=== PATIENT | male | born 1985 | race African-American/Black ===

== ENCOUNTER 2019-10-15 17:16 | Inpatient (IN) ==
[2019-10-15 17:53] LABS: Basophils % 0.1 % (0.0-0.8); Hematocrit 45.1 VOL% (42.0-52.0); Immature Granulocytes % 0.4 %; Immature Granulocytes Absolute 0.03 #; Lymphocytes # 0.6 10*3/uL (1.4-4.0); Lymphocytes % 7.9 % (21.2-54.2); Mean Corpuscular Volume 80.5 FL (87-102); Mean Platelet Volume 11.7 FL (9.6-12.0); Monocytes % 2.3 % (1.7-12.7); Neutrophils % 89.3 % (38.7-73.9); Platelet Count 178 T/CUMM (130-400); Red Cell Distribution Width 14.9 % (9.3-17.3); White Blood Count 7.3 T/CUMM (4-12)
[2019-10-15] MEDS ORDERED: SODIUM CHLORIDE 0.9% 2,000 ML IV STA (17:56)
[2019-10-15] MEDS ORDERED: methylPREDNISolone SOD SUC 125 MG/2 ML VIAL IV STA (17:56)
[2019-10-15] MEDS ORDERED: ALBUTEROL/IPRATROPIUM 3 ML NEB RESP TX STA (17:56)
[2019-10-15] MEDS ORDERED: cefTRIAXone 1,000 MG in SODIUM CHLORIDE 0.9% 100 ML IV STA (18:04)
[2019-10-15] MEDS ORDERED: LEVOFLOXACIN INJ 500 MG in PREMIX 1 EACH IV STA (18:05)
[2019-10-15 18:10] LABS: INR 1.1; PT Patient Result 11.4 SECS (9.8-11.9)
[2019-10-15 18:23] LABS: Ferritin 762.5 ng/ml (26-388)
[2019-10-15 18:36] LABS: ABG HCO3 20.3 MMOL/L (20-26); ABG Oxygen Saturation 92.3 % (95-100); ABG PCO2 29.3 MM HG (35-48); ABG PH 7.407 (7.35-7.45); ABG PO2 67.8 MM HG (80-95); ABG TCO2 16.1 MMOL/L (23-27)
[2019-10-15 18:40] LABS: Alanine Aminotransferase 74 U/L (16-61); Albumin 1.8 G/DL (3.4-5.0); Alkaline Phosphatase 32 U/L (45-117); Aspartate Amino Transferase 142 U/L (0-37); Bilirubin,Total < 0.39 MG/DL (0.2-1.0); Blood Urea Nitrogen 75 MG/DL (7-18); CKMB % 0.1 %; Calcium 7.5 MG/DL (8.5-10.1); Estimated Glom Filtration Rate 11 ML/MIN; Glucose 140 MG/DL (74-106); Osmolality,Calculated 285.7 MOS/KG (273-304)
[2019-10-15 18:42] LABS: Troponin I 0.124 NG/ML (0.00-0.045)
[2019-10-15] MEDS: ALBUTEROL INHALER 18 GM INH SCH (19:00)
[2019-10-15] MEDS ORDERED: ONDANSETRON 4 MG/2 ML VIAL IV PRN (19:20)
[2019-10-15] MEDS ORDERED: NON-FORMULARY MEDICATION (Albuterol Sulfate 2 PUFF) INH PRN (19:34)
[2019-10-15 20:51] LABS: Calcium 7.1 MG/DL (8.5-10.1); Osmolality,Calculated 293.2 MOS/KG (273-304)
[2019-10-15] MEDS ORDERED: CEFEPIME 1,000 MG VIAL ONE (23:15)
[2019-10-15] MEDS ORDERED: SODIUM CHLORIDE 0.9% 250 ML IV ONE (23:15)
[2019-10-16] MEDS ORDERED: AZITHROMYCIN INJ 250 MG in SODIUM CHLORIDE 0.9% 250 ML IV SCH (00:30)
[2019-10-16] MEDS: CEFEPIME 1,000 MG in SODIUM CHLORIDE 0.9% 100 ML IV SCH (00:50)
[2019-10-16] MEDS: ALBUTEROL INHALER 18 GM INH SCH ×6 (00:50→20:44)
[2019-10-16] MEDS: SODIUM BICARB INJ 50 MEQ in SODIUM CHLORIDE 0.45% 1,000 ML IV SCH ×6 (00:51→23:30)
[2019-10-16] MEDS: ENOXAPARIN 150 MG/ML SYRINGE SUBCUT SCH (00:52)
[2019-10-16] MEDS: ALBUTEROL 2 MG TABLET PO SCH ×4 (00:52→20:44)
[2019-10-16 02:08] LABS: Alanine Aminotransferase 75 U/L (16-61); Albumin 1.7 G/DL (3.4-5.0); Alkaline Phosphatase 22 U/L (45-117); Aspartate Amino Transferase 135 U/L (0-37); Bilirubin,Total < 0.39 MG/DL (0.2-1.0); Blood Urea Nitrogen 82 MG/DL (7-18); Calcium 7.1 MG/DL (8.5-10.1); Estimated Glom Filtration Rate 10 ML/MIN; Glucose 177 MG/DL (74-106); HDL Cholesterol 22 MG/DL (40-60); Osmolality,Calculated 296.2 MOS/KG (273-304); Risk Ratio 8.41; Total Protein 6.5 G/DL (6.4-8.3); Triglycerides 278 MG/DL (2-150); VLDL CHOLESTEROL 55.6 MG/DL
[2019-10-16 02:12] LABS: Hematocrit 40.8 VOL% (42.0-52.0); Hemoglobin 12.8 GM/DL (14.0-18.0); Immature Granulocytes % 0.4 %; Immature Granulocytes Absolute 0.03 #; Lymphocytes # 0.5 10*3/uL (1.4-4.0); Lymphocytes % 6.4 % (21.2-54.2); Mean Corpuscular HGB Conc 31.4 GM/DL (32-36); Mean Corpuscular Volume 80.6 FL (87-102); Mean Platelet Volume 12.2 FL (9.6-12.0); Monocytes % 1.4 % (1.7-12.7); Neutrophils % 91.8 % (38.7-73.9); Platelet Count 173 T/CUMM (130-400); Red Blood Count 5.06 MC/CUMM (3.8-5.5); White Blood Count 7.1 T/CUMM (4-12)
[2019-10-16 03:31] LABS: Lymphocytes 4 % (20-55); Segmented Neutrophils 94 % (50-85); Total Cells Counted 100
[2019-10-16 03:32] LABS: Anisocytosis 1+; Ovalocytes Few
[2019-10-16 03:33] LABS: Platelet Estimate Normal
[2019-10-16] MEDS: MONTELUKAST 10 MG TABLET PO SCH (08:56)
[2019-10-16] MEDS: DEXAMETHASONE 4 MG/1 ML VIAL IV SCH (08:56)
[2019-10-16] MEDS ORDERED: SODIUM CHLORIDE 0.9% 1,000 ML IV PRN (11:20)
[2019-10-16 17:14] LABS: Calcium 6.8 MG/DL (8.5-10.1); Osmolality,Calculated 296.5 MOS/KG (273-304)
[2019-10-16 19:00] LABS: Apearance,Urine CLOUDY (Clear); Bacteria,Urine Occasional /HPF (Few); Bilirubin,Urine Negative (Negative); Blood, Urine Large mg/dL (Negative); Glucose,Urine (UA) 50 mg/dL (Negative); Hyaline Casts,Urine 1 /LPF (0-3); Ketones,Urine Negative (Negative); Mucus,Urine Occasional /LPF (Occasional); Nitrite,Urine Negative (Negative); Protein,Urine >=500 MG/DL; RBC,Urine 64 /HPF (0-4); Urine Color Yellow (Yellow); Urine Specific Gravity 1.026 (1.001-1.035); Urine Urobilinogen < 2.0 EU/DL (0.2-1.0); WBC,Urine 6 /HPF (0-6)
[2019-10-17] MEDS: ALBUTEROL INHALER 18 GM INH SCH ×6 (00:07→21:59)
[2019-10-17] MEDS: ENOXAPARIN 150 MG/ML SYRINGE SUBCUT SCH (00:07)
[2019-10-17] MEDS: CEFEPIME 1,000 MG in SODIUM CHLORIDE 0.9% 100 ML IV SCH (00:13)
[2019-10-17] MEDS ORDERED: LORazepam 2 MG/1 ML VIAL IV PRN (00:34)
[2019-10-17] MEDS: ALBUTEROL 2 MG TABLET PO SCH ×4 (01:15→18:00)
[2019-10-17 04:16] LABS: Basophils % 0.1 % (0.0-0.8); Hematocrit 40.6 VOL% (42.0-52.0); Hemoglobin 12.6 GM/DL (14.0-18.0); Immature Granulocytes % 0.9 %; Lymphocytes # 0.4 10*3/uL (1.4-4.0); Lymphocytes % 3.4 % (21.2-54.2); Mean Corpuscular Volume 80.9 FL (87-102); Mean Platelet Volume 11.6 FL (9.6-12.0); Monocytes % 3.4 % (1.7-12.7); Neutrophils % 92.2 % (38.7-73.9); Platelet Count 178 T/CUMM (130-400); Red Blood Count 5.02 MC/CUMM (3.8-5.5); Red Cell Distribution Width 15.1 % (9.3-17.3); White Blood Count 10.9 T/CUMM (4-12)
[2019-10-17 04:18] LABS: ABG Base Excess -6.5 MMOL/L (-2.5-2.5); ABG Oxygen Saturation 90.5 % (95-100); ABG PCO2 35.2 MM HG (35-48); ABG PH 7.334 (7.35-7.45); ABG PO2 67.1 MM HG (80-95); ABG TCO2 16.6 MMOL/L (23-27); Allen Test Positive; Pt O2 Delivery Device Other
[2019-10-17 04:56] LABS: Band Neutrophils 1 % (0-10); Lymphocytes 1 % (20-55); Microcytosis Slight; Platelet Estimate Adequate; Segmented Neutrophils 95 % (50-85); Total Cells Counted 100
[2019-10-17 05:04] LABS: Osmolality,Calculated 299.5 MOS/KG (273-304)
[2019-10-17 05:05] LABS: Alanine Aminotransferase 94 U/L (16-61); Alkaline Phosphatase 31 U/L (45-117); Aspartate Amino Transferase 176 U/L (0-37); Bilirubin,Total < 0.39 MG/DL (0.2-1.0); Estimated Glom Filtration Rate 7 ML/MIN; Total Protein 6.6 G/DL (6.4-8.3)
[2019-10-17 05:07] LABS: Blood Urea Nitrogen 104 MG/DL (7-18); Glucose 151 MG/DL (74-106); Osmolality,Calculated 299.5 MOS/KG (273-304)
[2019-10-17] MEDS: LORazepam 2 MG/1 ML VIAL IV PRN (05:16)
[2019-10-17 05:18] LABS: Albumin 1.6 G/DL (3.4-5.0)
[2019-10-17] MEDS: DEXAMETHASONE 4 MG/1 ML VIAL IV SCH (08:00)
[2019-10-17] MEDS: MONTELUKAST 10 MG TABLET PO SCH (08:01)
[2019-10-17] MEDS: AZITHROMYCIN INJ 250 MG in SODIUM CHLORIDE 0.9% 250 ML IV SCH (09:37)
[2019-10-17] MEDS: SODIUM BICARB INJ 50 MEQ in SODIUM CHLORIDE 0.45% 1,000 ML IV SCH (09:37)
[2019-10-17] MEDS ORDERED: LIDOCAINE 1%/EPI INJ 20 ML VIAL ONE (11:27)
[2019-10-17] MEDS ORDERED: HEPARIN 5,000 UNIT/1 ML VIAL ONE (11:30)
[2019-10-17] MEDS ORDERED: ALBUTEROL INHALER 18 GM INH ONE (12:17)
[2019-10-17] MEDS ORDERED: MIDAZOLAM 2 MG/2 ML VIAL ONE (15:13)
[2019-10-17] MEDS: HEPARIN DRIP 25,000 UNITS/500 ML PREMIX IV SCH (16:36)
[2019-10-17 17:15] LABS: Hepatitis B Core IgM Quant 0.15 Index; Hepatitis B Surface Ag Quant 0.16 Index; Hepatitis B Surface Ag Result Negative (Negative); Hepatitis C Virus Ab Quant < 0.02 Index; Hepatitis C Virus Ab Result Negative (Negative)
[2019-10-17] MEDS: ALPRAZolam 0.25 MG TABLET PO SCH ×2 (18:10→21:00)
[2019-10-17 22:57] LABS: INR 1.2; PT Patient Result 12.4 SECS (9.8-11.9)
[2019-10-17 22:58] LABS: Partial Thromboplastin Time 66.6 SECS (23.9-33.8)
[2019-10-18] MEDS: ALBUTEROL INHALER 18 GM INH SCH ×6 (00:07→20:24)
[2019-10-18] MEDS: CEFEPIME 1,000 MG in SODIUM CHLORIDE 0.9% 100 ML IV SCH ×2 (00:07→23:30)
[2019-10-18] MEDS ORDERED: LORazepam 2 MG/1 ML VIAL ONE (01:16)
[2019-10-18] MEDS: ALBUTEROL 2 MG TABLET PO SCH ×4 (01:23→18:15)
[2019-10-18] MEDS: LORazepam 2 MG/1 ML VIAL IV PRN (01:23)
[2019-10-18 03:56] LABS: ABG Base Excess -5.8 MMOL/L (-2.5-2.5); ABG HCO3 19.2 MMOL/L (20-26); ABG PCO2 35.8 MM HG (35-48); ABG PH 7.347 (7.35-7.45); ABG PO2 68.7 MM HG (80-95); ABG TCO2 20.3 MMOL/L (23-27); Allen Test Positive; Pt O2 Delivery Device BIPAP
[2019-10-18 04:29] LABS: Basophils % 0.1 % (0.0-0.8); Hematocrit 34.8 VOL% (42.0-52.0); Hemoglobin 11.6 GM/DL (14.0-18.0); Immature Granulocytes Absolute 0.22 #; Lymphocytes # 0.6 10*3/uL (1.4-4.0); Lymphocytes % 5.5 % (21.2-54.2); Mean Corpuscular HGB Conc 33.3 GM/DL (32-36); Mean Platelet Volume 11.6 FL (9.6-12.0); Monocytes % 3.2 % (1.7-12.7); Neutrophils % 89.2 % (38.7-73.9); Platelet Count 187 T/CUMM (130-400); Red Blood Count 4.52 MC/CUMM (3.8-5.5); Red Cell Distribution Width 15.2 % (9.3-17.3)
[2019-10-18 04:55] LABS: Platelet Estimate Adequate
[2019-10-18 04:56] LABS: Microcytosis Slight
[2019-10-18 04:57] LABS: Albumin 1.7 G/DL (3.4-5.0); Bilirubin,Total 0.9 MG/DL (0.2-1.0); Calcium 7.4 MG/DL (8.5-10.1); Osmolality,Calculated 297.4 MOS/KG (273-304); Total Protein 6.8 G/DL (6.4-8.3)
[2019-10-18] MEDS ORDERED: hydrALAZINE 20 MG/1 ML VIAL IV PRN (04:59)
[2019-10-18] MEDS ORDERED: ENALAPRIL 2.5 MG/2 ML VIAL IV SCH (08:00)
[2019-10-18] MEDS: MONTELUKAST 10 MG TABLET PO SCH (08:15)
[2019-10-18] MEDS: ALPRAZolam 0.25 MG TABLET PO SCH ×3 (08:15→20:31)
[2019-10-18] MEDS: DEXAMETHASONE 4 MG/1 ML VIAL IV SCH (08:55)
[2019-10-18] MEDS ORDERED: cloNIDine 0.3 MG/24 HR PATCH TRANSDERM SCH (09:00)
[2019-10-18] MEDS: AZITHROMYCIN INJ 250 MG in SODIUM CHLORIDE 0.9% 250 ML IV SCH (09:51)
[2019-10-18] MEDS: HEPARIN DRIP 25,000 UNITS/500 ML PREMIX IV SCH (10:03)
[2019-10-18] MEDS: hydrALAZINE 20 MG/1 ML VIAL IV SCH ×2 (14:45→20:31)
[2019-10-18] MEDS: INSULIN LISPRO 100 UNIT/ML SUBCUT SCH (17:23)
[2019-10-18] MEDS: SODIUM BICARB INJ 50 MEQ in SODIUM CHLORIDE 0.45% 1,000 ML IV SCH (18:40)
[2019-10-19] MEDS: ALBUTEROL INHALER 18 GM INH SCH ×7 (00:01→23:56)
[2019-10-19] MEDS: INSULIN LISPRO 100 UNIT/ML SUBCUT SCH ×4 (00:43→17:56)
[2019-10-19] MEDS: ALBUTEROL 2 MG TABLET PO SCH ×4 (00:44→18:06)
[2019-10-19] MEDS: hydrALAZINE 20 MG/1 ML VIAL IV SCH ×2 (04:27→08:07)
[2019-10-19 04:47] LABS: Basophils % 0.2 % (0.0-0.8); Hematocrit 36.2 VOL% (42.0-52.0); Hemoglobin 11.6 GM/DL (14.0-18.0); Immature Granulocytes % 3.4 %; Immature Granulocytes Absolute 0.49 #; Lymphocytes # 0.8 10*3/uL (1.4-4.0); Lymphocytes % 5.9 % (21.2-54.2); Mean Corpuscular Volume 78.2 FL (87-102); Mean Platelet Volume 11.4 FL (9.6-12.0); Monocytes % 3.7 % (1.7-12.7); Neutrophils % 86.8 % (38.7-73.9); Platelet Count 247 T/CUMM (130-400); Red Blood Count 4.63 MC/CUMM (3.8-5.5); Red Cell Distribution Width 15.3 % (9.3-17.3); White Blood Count 14.3 T/CUMM (4-12)
[2019-10-19 04:56] LABS: Calcium 7.3 MG/DL (8.5-10.1); Osmolality,Calculated 298.8 MOS/KG (273-304)
[2019-10-19 05:16] LABS: Burr Cells Slight; Lymphocytes 7 % (20-55); Nucleated Red Blood Cells 1 (0-5); Ovalocytes Slight; Platelet Estimate Adequate; Segmented Neutrophils 89 % (50-85); Total Cells Counted 100
[2019-10-19 05:17] LABS: Microcytosis Slight
[2019-10-19 05:33] LABS: ABG Base Excess -7.2 MMOL/L (-2.5-2.5); ABG HCO3 18.5 MMOL/L (20-26); ABG Oxygen Saturation 94.7 % (95-100); ABG PCO2 37.8 MM HG (35-48); ABG PH 7.307 (7.35-7.45); ABG PO2 84.9 MM HG (80-95); ABG TCO2 19.6 MMOL/L (23-27); Allen Test Positive; Pt O2 Delivery Device BIPAP
[2019-10-19] MEDS: HEPARIN DRIP 25,000 UNITS/500 ML PREMIX IV SCH ×2 (06:19→18:06)
[2019-10-19] MEDS: ALPRAZolam 0.25 MG TABLET PO SCH ×3 (08:07→21:05)
[2019-10-19] MEDS: MONTELUKAST 10 MG TABLET PO SCH (08:07)
[2019-10-19] MEDS: DEXAMETHASONE 4 MG/1 ML VIAL IV SCH (08:07)
[2019-10-19] MEDS: AZITHROMYCIN INJ 250 MG in SODIUM CHLORIDE 0.9% 250 ML IV SCH (08:08)
[2019-10-19] MEDS: LORazepam 2 MG/1 ML VIAL IV PRN ×2 (15:35→21:05)
[2019-10-19] MEDS: SALIVA SUBSTITUTE SPRAY 60 ML CAN SWISH/SPIT PRN (15:35)
[2019-10-19] MEDS: CEFEPIME 1,000 MG in SODIUM CHLORIDE 0.9% 100 ML IV SCH (23:15)
[2019-10-20] MEDS: INSULIN LISPRO 100 UNIT/ML SUBCUT SCH ×5 (00:01→23:57)
[2019-10-20] MEDS: ALBUTEROL 2 MG TABLET PO SCH ×4 (00:17→19:13)
[2019-10-20 02:26] LABS: Basophils % 0.2 % (0.0-0.8); Hematocrit 35.1 VOL% (42.0-52.0); Hemoglobin 11.2 GM/DL (14.0-18.0); Immature Granulocytes Absolute 0.88 #; Lymphocytes # 0.7 10*3/uL (1.4-4.0); Lymphocytes % 4.5 % (21.2-54.2); Mean Corpuscular HGB Conc 31.9 GM/DL (32-36); Mean Corpuscular Volume 79.1 FL (87-102); Mean Platelet Volume 10.4 FL (9.6-12.0); Monocytes % 3.9 % (1.7-12.7); Neutrophils % 85.4 % (38.7-73.9); Platelet Count 241 T/CUMM (130-400); Red Blood Count 4.44 MC/CUMM (3.8-5.5); Red Cell Distribution Width 15.4 % (9.3-17.3); White Blood Count 14.6 T/CUMM (4-12)
[2019-10-20 02:52] LABS: Calcium 7.7 MG/DL (8.5-10.1); Osmolality,Calculated 292.8 MOS/KG (273-304)
[2019-10-20] MEDS: ALBUTEROL INHALER 18 GM INH SCH ×5 (03:16→21:16)
[2019-10-20 03:39] LABS: Eosinophils 1 % (0-10); Lymphocytes 7 % (20-55); Metamyelocytes 1 %; Segmented Neutrophils 87 % (50-85); Total Cells Counted 100
[2019-10-20 03:44] LABS: Hypochromasia 1+; Platelet Estimate Normal
[2019-10-20 04:59] LABS: ABG Base Excess -6.2 MMOL/L (-2.5-2.5); ABG HCO3 19.3 MMOL/L (20-26); ABG Oxygen Saturation 93.8 % (95-100); ABG PCO2 42.5 MM HG (35-48); ABG PH 7.286 (7.35-7.45); ABG PO2 85.9 MM HG (80-95); ABG TCO2 18.3 MMOL/L (23-27); Allen Test Positive; Pt O2 Delivery Device BIPAP
[2019-10-20] MEDS: HEPARIN DRIP 25,000 UNITS/500 ML PREMIX IV SCH ×2 (07:14→14:52)
[2019-10-20] MEDS: MONTELUKAST 10 MG TABLET PO SCH (08:28)
[2019-10-20] MEDS: SODIUM BICARBONATE 650 MG TABLET PO SCH ×3 (08:28→21:16)
[2019-10-20] MEDS: ALPRAZolam 0.25 MG TABLET PO SCH ×3 (08:29→21:16)
[2019-10-20] MEDS: DEXAMETHASONE 4 MG/1 ML VIAL IV SCH (08:29)
[2019-10-20] MEDS: AZITHROMYCIN INJ 250 MG in SODIUM CHLORIDE 0.9% 250 ML IV SCH (09:25)
[2019-10-20] MEDS: METOPROLOL TARTRATE 25 MG TABLET PO SCH ×2 (15:55→21:16)
[2019-10-20] MEDS: CEFEPIME 1,000 MG in SODIUM CHLORIDE 0.9% 100 ML IV SCH (23:57)
[2019-10-21] MEDS: ALBUTEROL 2 MG TABLET PO SCH ×4 (01:09→17:58)
[2019-10-21] MEDS: ALBUTEROL INHALER 18 GM INH SCH ×6 (01:09→21:01)
[2019-10-21 05:04] LABS: Allen Test Positive; Pt O2 Delivery Device BIPAP
[2019-10-21 05:05] LABS: ABG Base Excess -2.7 MMOL/L (-2.5-2.5); ABG HCO3 22.3 MMOL/L (20-26); ABG PCO2 39.5 MM HG (35-48); ABG PO2 62.8 MM HG (80-95); ABG TCO2 23.5 MMOL/L (23-27)
[2019-10-21 05:47] LABS: Basophils # 0.1 10*3/uL (0.0-0.2); Basophils % 0.3 % (0.0-0.8); Eosinophils % 0.2 % (0.00-10.9); Hematocrit 35.4 VOL% (42.0-52.0); Hemoglobin 11.2 GM/DL (14.0-18.0); Immature Granulocytes % 8.2 %; Immature Granulocytes Absolute 1.41 #; Lymphocytes # 0.6 10*3/uL (1.4-4.0); Lymphocytes % 3.6 % (21.2-54.2); Mean Corpuscular HGB Conc 31.6 GM/DL (32-36); Mean Corpuscular Volume 78.8 FL (87-102); Mean Platelet Volume 10.8 FL (9.6-12.0); Neutrophils % 84.7 % (38.7-73.9); Platelet Count 277 T/CUMM (130-400); Red Blood Count 4.49 MC/CUMM (3.8-5.5); Red Cell Distribution Width 15.2 % (9.3-17.3); White Blood Count 17.2 T/CUMM (4-12)
[2019-10-21 06:00] LABS: Calcium 8.5 MG/DL (8.5-10.1)
[2019-10-21 06:01] LABS: Osmolality,Calculated 288.7 MOS/KG (273-304)
[2019-10-21] MEDS ORDERED: HEPARIN 5,000 UNIT/1 ML VIAL IV ONE (06:03)
[2019-10-21] MEDS: HEPARIN DRIP 25,000 UNITS/500 ML PREMIX IV SCH ×2 (06:09→14:21)
[2019-10-21] MEDS: INSULIN LISPRO 100 UNIT/ML SUBCUT SCH ×3 (06:32→17:23)
[2019-10-21 07:57] LABS: Band Neutrophils 2 % (0-10); Hypochromasia 1+; Lymphocytes 12 % (20-55); Platelet Estimate Adequate; Segmented Neutrophils 83 % (50-85); Total Cells Counted 100
[2019-10-21 07:58] LABS: Microcytosis Slight
[2019-10-21] MEDS: DEXAMETHASONE 4 MG/1 ML VIAL IV SCH (08:01)
[2019-10-21] MEDS: MONTELUKAST 10 MG TABLET PO SCH (08:02)
[2019-10-21] MEDS: SODIUM BICARBONATE 650 MG TABLET PO SCH ×3 (08:02→20:30)
[2019-10-21] MEDS: ALPRAZolam 0.25 MG TABLET PO SCH ×3 (08:02→20:30)
[2019-10-21] MEDS: METOPROLOL TARTRATE 25 MG TABLET PO SCH ×2 (08:02→20:30)
[2019-10-21] MEDS: CEFEPIME 1,000 MG in SODIUM CHLORIDE 0.9% 100 ML IV SCH (23:56)
[2019-10-22] MEDS: ALBUTEROL INHALER 18 GM INH SCH ×4 (00:17→11:31)
[2019-10-22] MEDS: INSULIN LISPRO 100 UNIT/ML SUBCUT SCH ×4 (00:18→17:51)
[2019-10-22] MEDS: ACETAMINOPHEN 325 MG TABLET PO PRN (00:45)
[2019-10-22] MEDS: ALBUTEROL 2 MG TABLET PO SCH ×4 (00:52→18:15)
[2019-10-22 04:22] LABS: ABG HCO3 21.1 MMOL/L (20-26); ABG Oxygen Saturation 94.7 % (95-100); ABG PCO2 46.7 MM HG (35-48); ABG PH 7.295 (7.35-7.45); ABG PO2 90.5 MM HG (80-95); ABG TCO2 20.7 MMOL/L (23-27); Allen Test Positive; Pt O2 Delivery Device Ventilator
[2019-10-22 04:27] LABS: Basophils # 0.1 10*3/uL (0.0-0.2); Basophils % 0.3 % (0.0-0.8); Eosinophils # 0.1 10*3/uL (0.0-0.87); Eosinophils % 0.4 % (0.00-10.9); Hematocrit 34.5 VOL% (42.0-52.0); Hemoglobin 10.6 GM/DL (14.0-18.0); Immature Granulocytes % 7.3 %; Immature Granulocytes Absolute 1.42 #; Lymphocytes # 0.7 10*3/uL (1.4-4.0); Lymphocytes % 3.8 % (21.2-54.2); Mean Corpuscular HGB Conc 30.7 GM/DL (32-36); Mean Platelet Volume 10.7 FL (9.6-12.0); Monocytes % 2.3 % (1.7-12.7); Neutrophils % 85.9 % (38.7-73.9); Platelet Count 270 T/CUMM (130-400); Red Blood Count 4.26 MC/CUMM (3.8-5.5); Red Cell Distribution Width 15.3 % (9.3-17.3); White Blood Count 19.4 T/CUMM (4-12)
[2019-10-22 04:46] LABS: Band Neutrophils 3 % (0-10); Hypochromasia 1+; Lymphocytes 6 % (20-55); Microcytosis Slight; Ovalocytes Slight; Platelet Estimate Adequate; Segmented Neutrophils 87 % (50-85); Total Cells Counted 100
[2019-10-22] MEDS: HEPARIN DRIP 25,000 UNITS/500 ML PREMIX IV SCH ×2 (05:39→17:39)
[2019-10-22 05:56] LABS: Osmolality,Calculated 298.2 MOS/KG (273-304)
[2019-10-22] MEDS ORDERED: SODIUM POLYSTYRENE SULFATE 15 GM/60 ML BOTTLE PO ONE (06:30)
[2019-10-22] MEDS: MONTELUKAST 10 MG TABLET PO SCH (08:30)
[2019-10-22] MEDS: ALPRAZolam 0.25 MG TABLET PO SCH (08:30)
[2019-10-22] MEDS: SODIUM BICARBONATE 650 MG TABLET PO SCH ×3 (08:30→20:30)
[2019-10-22] MEDS: METOPROLOL TARTRATE 25 MG TABLET PO SCH ×2 (08:30→20:30)
[2019-10-22] MEDS: DEXAMETHASONE 4 MG/1 ML VIAL IV SCH (08:30)
[2019-10-22 10:20] LABS: Protein/Creatinine Ratio,Urine 4.7 RATIO
[2019-10-22 11:59] LABS: Calcium 7.7 MG/DL (8.5-10.1); Osmolality,Calculated 302.2 MOS/KG (273-304)
[2019-10-22] MEDS ORDERED: HEPARIN 5,000 UNIT/1 ML VIAL IV ONE (12:01)
[2019-10-22] MEDS ORDERED: ALBUMIN 25% 25 GM in PREMIX 1 EACH IV ONE (16:28)
[2019-10-22] MEDS ORDERED: LORazepam 2 MG/1 ML VIAL ONE (23:34)
[2019-10-22] MEDS: LORazepam 2 MG/1 ML VIAL IV PRN (23:50)
[2019-10-23] MEDS: CEFEPIME 1,000 MG in SODIUM CHLORIDE 0.9% 100 ML IV SCH (00:10)
[2019-10-23] MEDS: INSULIN LISPRO 100 UNIT/ML SUBCUT SCH ×4 (00:45→18:04)
[2019-10-23] MEDS: ALBUTEROL 2 MG TABLET PO SCH ×2 (00:46→05:52)
[2019-10-23] MEDS: HEPARIN DRIP 25,000 UNITS/500 ML PREMIX IV SCH ×2 (01:45→21:46)
[2019-10-23 03:39] LABS: ABG Base Excess -2.5 MMOL/L (-2.5-2.5); ABG HCO3 23.8 MMOL/L (20-26); ABG Oxygen Saturation 95.2 % (95-100); ABG PCO2 47.3 MM HG (35-48); ABG PH 7.319 (7.35-7.45); ABG PO2 90.8 MM HG (80-95); ABG TCO2 25.2 MMOL/L (23-27)
[2019-10-23 04:10] LABS: Basophils % 0.1 % (0.0-0.8); Eosinophils # 0.1 10*3/uL (0.0-0.87); Eosinophils % 0.4 % (0.00-10.9); Hematocrit 33.4 VOL% (42.0-52.0); Hemoglobin 10.3 GM/DL (14.0-18.0); Immature Granulocytes % 8.3 %; Lymphocytes # 0.5 10*3/uL (1.4-4.0); Lymphocytes % 2.6 % (21.2-54.2); Mean Corpuscular HGB Conc 30.8 GM/DL (32-36); Mean Corpuscular Volume 81.5 FL (87-102); Mean Platelet Volume 10.4 FL (9.6-12.0); Monocytes % 2.1 % (1.7-12.7); Neutrophils % 86.5 % (38.7-73.9); Platelet Count 260 T/CUMM (130-400); Red Cell Distribution Width 15.2 % (9.3-17.3); White Blood Count 20.6 T/CUMM (4-12)
[2019-10-23 04:31] LABS: Osmolality,Calculated 294.2 MOS/KG (273-304)
[2019-10-23 04:35] LABS: Band Neutrophils 1 % (0-10); Lymphocytes 3 % (20-55); Platelet Estimate Adequate; Segmented Neutrophils 93 % (50-85); Total Cells Counted 100
[2019-10-23 04:36] LABS: Hypochromasia Slight; Microcytosis Slight
[2019-10-23] MEDS: MONTELUKAST 10 MG TABLET PO SCH (08:14)
[2019-10-23] MEDS: DEXAMETHASONE 4 MG/1 ML VIAL IV SCH (08:14)
[2019-10-23] MEDS: METOPROLOL TARTRATE 25 MG TABLET PO SCH (08:14)
[2019-10-23] MEDS: PANTOPRAZOLE 40 MG TABLET PO SCH (08:14)
[2019-10-23] MEDS: SODIUM BICARBONATE 650 MG TABLET PO SCH ×3 (08:14→20:20)
[2019-10-23] MEDS: LORazepam 2 MG/1 ML VIAL IV PRN (21:46)
[2019-10-24] MEDS: INSULIN LISPRO 100 UNIT/ML SUBCUT SCH ×5 (00:44→23:03)
[2019-10-24 04:24] LABS: Basophils % 0.2 % (0.0-0.8); Eosinophils # 0.1 10*3/uL (0.0-0.87); Eosinophils % 0.7 % (0.00-10.9); Hematocrit 31.2 VOL% (42.0-52.0); Hemoglobin 9.8 GM/DL (14.0-18.0); Immature Granulocytes % 8.9 %; Immature Granulocytes Absolute 1.62 #; Lymphocytes # 0.5 10*3/uL (1.4-4.0); Lymphocytes % 2.9 % (21.2-54.2); Mean Corpuscular HGB Conc 31.4 GM/DL (32-36); Mean Corpuscular Volume 78.6 FL (87-102); Mean Platelet Volume 11.2 FL (9.6-12.0); Monocytes % 2.3 % (1.7-12.7); Platelet Count 225 T/CUMM (130-400); Red Blood Count 3.97 MC/CUMM (3.8-5.5); White Blood Count 18.2 T/CUMM (4-12)
[2019-10-24 04:28] LABS: ABG Base Excess -1.1 MMOL/L (-2.5-2.5); ABG HCO3 24.9 MMOL/L (20-26); ABG Oxygen Saturation 92.3 % (95-100); ABG PCO2 47.3 MM HG (35-48); ABG PH 7.339 (7.35-7.45); ABG TCO2 26.3 MMOL/L (23-27); Allen Test Positive; Pt O2 Delivery Device BIPAP
[2019-10-24 04:47] LABS: Lymphocytes 4 % (20-55); Platelet Estimate Adequate; Segmented Neutrophils 95 % (50-85); Total Cells Counted 100
[2019-10-24 04:48] LABS: Calcium 7.8 MG/DL (8.5-10.1); Hypochromasia 1+; Microcytosis Slight; Osmolality,Calculated 300.2 MOS/KG (273-304)
[2019-10-24 05:15] LABS: Calcium 7.8 MG/DL (8.5-10.1); Osmolality,Calculated 297.4 MOS/KG (273-304)
[2019-10-24] MEDS: SODIUM BICARBONATE 650 MG TABLET PO SCH ×3 (08:12→20:40)
[2019-10-24] MEDS: PANTOPRAZOLE 40 MG TABLET PO SCH (08:12)
[2019-10-24] MEDS: MONTELUKAST 10 MG TABLET PO SCH (08:12)
[2019-10-24] MEDS: DEXAMETHASONE 4 MG/1 ML VIAL IV SCH (08:12)
[2019-10-24] MEDS: cefTRIAXone 1,000 MG in SYRINGE 1 EACH IV SCH (09:55)
[2019-10-24] MEDS ORDERED: VANCOMYCIN INJ 1,000 MG in SODIUM CHLORIDE 0.9% 250 ML IV PRN (10:07)
[2019-10-24] MEDS ORDERED: VANCOMYCIN INJ 2,500 MG in SODIUM CHLORIDE 0.9% 500 ML IV ONE ×2 (11:00→15:00)
[2019-10-24] MEDS: LORazepam 2 MG/1 ML VIAL IV PRN ×2 (11:08→20:40)
[2019-10-24] MEDS: HEPARIN DRIP 25,000 UNITS/500 ML PREMIX IV SCH (14:35)
[2019-10-24] MEDS: FERROUS SULFATE 325 MG TABLET PO SCH (20:40)
[2019-10-25 04:56] LABS: Basophils % 0.2 % (0.0-0.8); Eosinophils # 0.2 10*3/uL (0.0-0.87); Eosinophils % 1.1 % (0.00-10.9); Hematocrit 29.6 VOL% (42.0-52.0); Hemoglobin 9.2 GM/DL (14.0-18.0); Immature Granulocytes % 7.2 %; Immature Granulocytes Absolute 1.21 #; Lymphocytes # 0.7 10*3/uL (1.4-4.0); Lymphocytes % 4.3 % (21.2-54.2); Mean Corpuscular HGB Conc 31.1 GM/DL (32-36); Mean Corpuscular Volume 79.8 FL (87-102); Mean Platelet Volume 11.2 FL (9.6-12.0); Monocytes % 2.3 % (1.7-12.7); Neutrophils % 84.9 % (38.7-73.9); Platelet Count 219 T/CUMM (130-400); Red Blood Count 3.71 MC/CUMM (3.8-5.5); Red Cell Distribution Width 14.9 % (9.3-17.3); White Blood Count 16.9 T/CUMM (4-12)
[2019-10-25 05:26] LABS: Hypochromasia 1+; Lymphocytes 4 % (20-55); Microcytosis Slight; Ovalocytes Slight; Platelet Estimate Adequate; Segmented Neutrophils 94 % (50-85); Total Cells Counted 100
[2019-10-25 05:56] LABS: Calcium 7.4 MG/DL (8.5-10.1); Osmolality,Calculated 294.4 MOS/KG (273-304)
[2019-10-25] MEDS: INSULIN LISPRO 100 UNIT/ML SUBCUT SCH ×3 (06:39→18:08)
[2019-10-25] MEDS: SODIUM BICARBONATE 650 MG TABLET PO SCH ×3 (08:17→16:00)
[2019-10-25] MEDS: FERROUS SULFATE 325 MG TABLET PO SCH ×2 (08:17→08:20)
[2019-10-25] MEDS: DEXAMETHASONE 4 MG/1 ML VIAL IV SCH (08:17)
[2019-10-25] MEDS: PANTOPRAZOLE 40 MG TABLET PO SCH (08:17)
[2019-10-25] MEDS: MONTELUKAST 10 MG TABLET PO SCH (08:18)
[2019-10-25] MEDS ORDERED: cloNIDine 0.2 MG/24 HR PATCH TRANSDERM SCH (09:00)
[2019-10-25] MEDS: LORazepam 2 MG/1 ML VIAL IV PRN (09:05)
[2019-10-25] MEDS: cefTRIAXone 1,000 MG in SYRINGE 1 EACH IV SCH (09:51)
[2019-10-25] MEDS: SALIVA SUBSTITUTE SPRAY 60 ML CAN SWISH/SPIT PRN (09:52)
[2019-10-25] MEDS: HEPARIN DRIP 25,000 UNITS/500 ML PREMIX IV SCH (13:16)
[2019-10-25] MEDS: MORPHINE 4 MG/1 ML VIAL IV PRN ×2 (13:35→23:40)
[2019-10-25 15:40] LABS: ABG Base Excess -0.7 MMOL/L (-2.5-2.5); ABG HCO3 23.6 MMOL/L (20-26); ABG PCO2 47.7 MM HG (35-48); ABG PH 7.335 (7.35-7.45); ABG PO2 63.4 MM HG (80-95); ABG TCO2 23.4 MMOL/L (23-27); Allen Test Positive; Pt O2 Delivery Device BIPAP
[2019-10-26] MEDS: INSULIN LISPRO 100 UNIT/ML SUBCUT SCH ×4 (00:12→18:54)
[2019-10-26] MEDS: SALIVA SUBSTITUTE SPRAY 60 ML CAN SWISH/SPIT PRN ×2 (03:50→09:50)
[2019-10-26 04:01] LABS: Basophils % 0.2 % (0.0-0.8); Eosinophils # 0.1 10*3/uL (0.0-0.87); Eosinophils % 0.5 % (0.00-10.9); Hematocrit 30.5 VOL% (42.0-52.0); Hemoglobin 9.4 GM/DL (14.0-18.0); Immature Granulocytes Absolute 0.91 #; Lymphocytes # 0.8 10*3/uL (1.4-4.0); Lymphocytes % 4.4 % (21.2-54.2); Mean Corpuscular HGB Conc 30.8 GM/DL (32-36); Mean Corpuscular Volume 81.1 FL (87-102); Monocytes % 2.9 % (1.7-12.7); Platelet Count 217 T/CUMM (130-400); Red Blood Count 3.76 MC/CUMM (3.8-5.5); Red Cell Distribution Width 14.9 % (9.3-17.3); White Blood Count 18.3 T/CUMM (4-12)
[2019-10-26] MEDS: MORPHINE 4 MG/1 ML VIAL IV PRN ×2 (04:10→20:50)
[2019-10-26 04:32] LABS: Calcium 7.9 MG/DL (8.5-10.1); Osmolality,Calculated 315.2 MOS/KG (273-304)
[2019-10-26 04:40] LABS: Band Neutrophils 1 % (0-10); Eosinophils 1 % (0-10); Lymphocytes 6 % (20-55); Myelocytes 1 %; Segmented Neutrophils 89 % (50-85); Total Cells Counted 100
[2019-10-26 04:41] LABS: Hypochromasia 1+; Microcytosis Slight; Ovalocytes Slight; Platelet Estimate Normal; Tear Drop Cells Slight
[2019-10-26] MEDS: HEPARIN DRIP 25,000 UNITS/500 ML PREMIX IV SCH ×2 (06:38→16:23)
[2019-10-26] MEDS: SODIUM BICARBONATE 650 MG TABLET PO SCH ×3 (08:29→20:50)
[2019-10-26] MEDS: MONTELUKAST 10 MG TABLET PO SCH (08:29)
[2019-10-26] MEDS: ALPRAZolam 0.25 MG TABLET PO PRN ×2 (08:30→18:58)
[2019-10-26] MEDS: FERROUS SULFATE 325 MG TABLET PO SCH ×2 (08:30→20:50)
[2019-10-26] MEDS: ACETAMINOPHEN 325 MG TABLET PO PRN (08:30)
[2019-10-26] MEDS: PANTOPRAZOLE 40 MG TABLET PO SCH (08:30)
[2019-10-26] MEDS: FENOFIBRATE 145 MG TABLET PO SCH (08:39)
[2019-10-26] MEDS ORDERED: predniSONE 20 MG TABLET PO SCH (09:00)
[2019-10-26] MEDS: cefTRIAXone 1,000 MG in SYRINGE 1 EACH IV SCH (09:50)
[2019-10-26] MEDS ORDERED: VECURONIUM 10 MG VIAL IV ONE (13:02)
[2019-10-26] MEDS ORDERED: ETOMIDATE 20 MG/10 ML VIAL IV ONE (13:03)
[2019-10-26 13:24] LABS: ABG Base Excess -0.5 MMOL/L (-2.5-2.5); ABG HCO3 23.8 MMOL/L (20-26); ABG Oxygen Saturation 82.6 % (95-100); ABG PCO2 44.4 MM HG (35-48); ABG PH 7.361 (7.35-7.45); ABG PO2 53.5 MM HG (80-95)
[2019-10-26] MEDS ORDERED: ALTEPLASE 2 MG VIAL IV PRN ×4 (13:29→13:41)
[2019-10-26] MEDS ORDERED: HEPARIN 10,000 UNIT/10 ML VIAL IV SCH ×2 (13:30→13:45)
[2019-10-26 16:21] LABS: ABG Base Excess 1.2 MMOL/L (-2.5-2.5); ABG HCO3 25.3 MMOL/L (20-26); ABG PCO2 45.1 MM HG (35-48); ABG PO2 60.9 MM HG (80-95); ABG TCO2 24.1 MMOL/L (23-27)
[2019-10-26] MEDS ORDERED: VANCOMYCIN INJ 1,000 MG in SODIUM CHLORIDE 0.9% 250 ML IV ONE (17:00)
[2019-10-26] MEDS: cefTAZidime 1,000 MG in SYRINGE 1 EACH IV SCH (17:25)
[2019-10-27] MEDS: ALPRAZolam 0.25 MG TABLET PO PRN (01:07)
[2019-10-27] MEDS: INSULIN LISPRO 100 UNIT/ML SUBCUT SCH ×4 (03:05→19:14)
[2019-10-27 03:31] LABS: ABG Base Excess 0.6 MMOL/L (-2.5-2.5); ABG HCO3 26.1 MMOL/L (20-26); ABG Oxygen Saturation 80.7 % (95-100); ABG PCO2 45.7 MM HG (35-48); ABG PH 7.374 (7.35-7.45); ABG PO2 51.1 MM HG (80-95); ABG TCO2 27.5 MMOL/L (23-27)
[2019-10-27 04:30] LABS: Basophils % 0.1 % (0.0-0.8); Eosinophils # 0.2 10*3/uL (0.0-0.87); Eosinophils % 0.8 % (0.00-10.9); Hematocrit 31.1 VOL% (42.0-52.0); Hemoglobin 9.7 GM/DL (14.0-18.0); Immature Granulocytes Absolute 0.61 #; Lymphocytes # 0.9 10*3/uL (1.4-4.0); Lymphocytes % 4.3 % (21.2-54.2); Mean Corpuscular HGB Conc 31.2 GM/DL (32-36); Mean Corpuscular Volume 79.7 FL (87-102); Mean Platelet Volume 11.4 FL (9.6-12.0); Monocytes % 2.7 % (1.7-12.7); Neutrophils % 89.1 % (38.7-73.9); Platelet Count 200 T/CUMM (130-400); White Blood Count 20.3 T/CUMM (4-12)
[2019-10-27 04:34] LABS: Osmolality,Calculated 303.5 MOS/KG (273-304)
[2019-10-27 04:57] LABS: Ferritin 744.2 ng/ml (26-388)
[2019-10-27 05:04] LABS: Eosinophils 1 % (0-10); Lymphocytes 7 % (20-55); Segmented Neutrophils 89 % (50-85); Total Cells Counted 100
[2019-10-27 05:06] LABS: Anisocytosis 1+; Platelet Estimate Normal
[2019-10-27] MEDS ORDERED: ETOMIDATE 20 MG/10 ML VIAL IV ONE ×2 (06:34→06:40)
[2019-10-27] MEDS ORDERED: ROCURONIUM 100 MG/10 ML VIAL IV ONE ×2 (06:35→06:40)
[2019-10-27] MEDS: HEPARIN DRIP 25,000 UNITS/500 ML PREMIX IV SCH ×2 (07:11→18:54)
[2019-10-27] MEDS ORDERED: DILTIAZEM 50 MG/10 ML VIAL IV ONE (07:34)
[2019-10-27] MEDS ORDERED: DILTIAZEM 25 MG/5 ML VIAL IV ONE (07:41)
[2019-10-27 08:08] LABS: ABG Base Excess -1.9 MMOL/L (-2.5-2.5); ABG HCO3 27.1 MMOL/L (20-26); ABG Oxygen Saturation 83.6 % (95-100); ABG PO2 64.2 MM HG (80-95); ABG TCO2 29.2 MMOL/L (23-27)
[2019-10-27] MEDS ORDERED: VECURONIUM 10 MG VIAL IV ONE ×2 (08:10→08:12)
[2019-10-27 08:11] LABS: ABG PCO2 69.8 MM HG (35-48)
[2019-10-27 08:12] LABS: ABG PH 7.207 (7.35-7.45)
[2019-10-27 09:06] LABS: ABG Base Excess -2.7 MMOL/L (-2.5-2.5); ABG HCO3 25.6 MMOL/L (20-26); ABG Oxygen Saturation 84.6 % (95-100); ABG PCO2 61.9 MM HG (35-48); ABG PH 7.234 (7.35-7.45); ABG PO2 63.7 MM HG (80-95); ABG TCO2 27.5 MMOL/L (23-27)
[2019-10-27] MEDS: fentaNYL INJ 2,500 MCG in SODIUM CHLORIDE 0.9% 75 ML IV PRN ×3 (09:25→21:51)
[2019-10-27] MEDS: ROCURONIUM 1,000 MG in SODIUM CHLORIDE 0.9% 175 ML IV PRN ×2 (09:25→22:35)
[2019-10-27] MEDS: MIDAZOLAM 100 MG in SODIUM CHLORIDE 0.9% 80 ML IV PRN ×2 (09:25→23:48)
[2019-10-27] MEDS: PANTOPRAZOLE 40 MG VIAL IV SCH (10:11)
[2019-10-27] MEDS: FERROUS SULFATE 325 MG TABLET PO SCH ×2 (10:11→21:20)
[2019-10-27] MEDS: DEXAMETHASONE 4 MG/1 ML VIAL IV SCH (10:11)
[2019-10-27] MEDS: MONTELUKAST 10 MG TABLET PO SCH (10:11)
[2019-10-27] MEDS: FENOFIBRATE 145 MG TABLET PO SCH (10:11)
[2019-10-27] MEDS: PHENYLEPHRINE INJ 160 MG in SODIUM CHLORIDE 0.9% 234 ML IV PRN ×2 (10:25→22:35)
[2019-10-27] MEDS ORDERED: VANCOMYCIN INJ 750 MG in SODIUM CHLORIDE 0.9% 250 ML IV PRN (11:30)
[2019-10-27] MEDS ORDERED: HEPARIN 1,000 UNIT/1 ML VIAL IV ONE (11:46)
[2019-10-27] MEDS ORDERED: HEPARIN 5,000 UNIT/1 ML VIAL IV ONE (12:30)
[2019-10-27] MEDS ORDERED: INSULIN REGULAR 100 UNIT/ML IV ONE (14:00)
[2019-10-27 14:34] LABS: ABG Base Excess -2.2 MMOL/L (-2.5-2.5); ABG HCO3 22.3 MMOL/L (20-26); ABG Oxygen Saturation 83.6 % (95-100); ABG PCO2 55.9 MM HG (35-48); ABG PH 7.266 (7.35-7.45); ABG TCO2 23.6 MMOL/L (23-27)
[2019-10-27] MEDS ORDERED: SODIUM BICARBONATE 50 MEQ/50 ML VIAL IV ONE (14:45)
[2019-10-27] MEDS ORDERED: VANCOMYCIN INJ 750 MG in SODIUM CHLORIDE 0.9% 250 ML IV ONE (17:00)
[2019-10-27] MEDS: cefTAZidime 1,000 MG in SYRINGE 1 EACH IV SCH (17:20)
[2019-10-28] MEDS: INSULIN LISPRO 100 UNIT/ML SUBCUT SCH ×4 (01:07→18:07)
[2019-10-28] MEDS: fentaNYL INJ 2,500 MCG in SODIUM CHLORIDE 0.9% 75 ML IV PRN ×2 (04:30→11:15)
[2019-10-28 05:01] LABS: ABG Base Excess -2.4 MMOL/L (-2.5-2.5); ABG HCO3 22.3 MMOL/L (20-26); ABG Oxygen Saturation 96.8 % (95-100); ABG PCO2 49.6 MM HG (35-48); ABG PH 7.298 (7.35-7.45); ABG TCO2 22.5 MMOL/L (23-27); Allen Test Positive; Pt O2 Delivery Device Ventilator
[2019-10-28 06:10] LABS: Basophils # 0.1 10*3/uL (0.0-0.2); Basophils % 0.2 % (0.0-0.8); Eosinophils % 0.1 % (0.00-10.9); Hematocrit 30.2 VOL% (42.0-52.0); Hemoglobin 9.4 GM/DL (14.0-18.0); Immature Granulocytes % 3.3 %; Immature Granulocytes Absolute 0.91 #; Lymphocytes # 1.7 10*3/uL (1.4-4.0); Lymphocytes % 6.1 % (21.2-54.2); Mean Corpuscular HGB Conc 31.1 GM/DL (32-36); Mean Corpuscular Volume 80.3 FL (87-102); Mean Platelet Volume 10.8 FL (9.6-12.0); Monocytes % 2.9 % (1.7-12.7); Neutrophils % 87.4 % (38.7-73.9); Platelet Count 255 T/CUMM (130-400); Red Blood Count 3.76 MC/CUMM (3.8-5.5); Red Cell Distribution Width 15.3 % (9.3-17.3); White Blood Count 27.6 T/CUMM (4-12)
[2019-10-28 06:21] LABS: Calcium 8.6 MG/DL (8.5-10.1); Osmolality,Calculated 320.2 MOS/KG (273-304)
[2019-10-28 06:43] LABS: Ferritin 1812.9 ng/ml (26-388)
[2019-10-28 06:57] LABS: Anisocytosis 1+; Band Neutrophils 1 % (0-10); Hypochromasia 2+; Lymphocytes 7 % (20-55); Macrocytosis 1+; Metamyelocytes 1 %; Platelet Estimate Normal; Segmented Neutrophils 88 % (50-85); Total Cells Counted 100
[2019-10-28] MEDS: HEPARIN DRIP 25,000 UNITS/500 ML PREMIX IV SCH ×2 (07:09→14:31)
[2019-10-28] MEDS ORDERED: DEXTROSE 50% 25 GM/50 ML VIAL IV ONE (08:59)
[2019-10-28] MEDS ORDERED: SODIUM POLYSTYRENE SULFATE 15 GM/60 ML BOTTLE PO ONE (08:59)
[2019-10-28] MEDS ORDERED: INSULIN REGULAR 100 UNIT/ML IV ONE (08:59)
[2019-10-28] MEDS ORDERED: CALCIUM GLUCONATE 2,000 MG in SODIUM CHLORIDE 0.9% 100 ML IV ONE (08:59)
[2019-10-28] MEDS: PANTOPRAZOLE 40 MG VIAL IV SCH (09:29)
[2019-10-28] MEDS: FENOFIBRATE 145 MG TABLET PO SCH (09:29)
[2019-10-28] MEDS: FERROUS SULFATE 325 MG TABLET PO SCH ×2 (09:29→20:46)
[2019-10-28] MEDS: DEXAMETHASONE 4 MG/1 ML VIAL IV SCH (09:29)
[2019-10-28] MEDS: MONTELUKAST 10 MG TABLET PO SCH (09:36)
[2019-10-28 12:23] LABS: Calcium 8.3 MG/DL (8.5-10.1); Osmolality,Calculated 294.2 MOS/KG (273-304)
[2019-10-28] MEDS: PHENYLEPHRINE INJ 160 MG in SODIUM CHLORIDE 0.9% 234 ML IV PRN (12:30)
[2019-10-28] MEDS: PIPERACILLIN/TAZOBACTAM 3,375 MG in SODIUM CHLORIDE 0.9% 100 ML IV SCH (13:30)
[2019-10-28] MEDS: MINERAL OIL/PETROLATUM OPH OINT 3.5 GM TUBE BOTH EYES SCH ×4 (14:31→23:39)
[2019-10-28] MEDS ORDERED: VANCOMYCIN INJ 750 MG in SODIUM CHLORIDE 0.9% 250 ML IV ONE (17:00)
[2019-10-29] MEDS: INSULIN LISPRO 100 UNIT/ML SUBCUT SCH ×5 (01:23→23:28)
[2019-10-29] MEDS: HEPARIN DRIP 25,000 UNITS/500 ML PREMIX IV SCH ×2 (01:33→14:04)
[2019-10-29] MEDS: PIPERACILLIN/TAZOBACTAM 3,375 MG in SODIUM CHLORIDE 0.9% 100 ML IV SCH ×2 (01:34→15:11)
[2019-10-29] MEDS: MINERAL OIL/PETROLATUM OPH OINT 3.5 GM TUBE BOTH EYES SCH ×4 (02:11→14:05)
[2019-10-29 04:53] LABS: Basophils % 0.1 % (0.0-0.8); Eosinophils % 0.2 % (0.00-10.9); Hematocrit 24.6 VOL% (42.0-52.0); Hemoglobin 7.7 GM/DL (14.0-18.0); Immature Granulocytes % 2.4 %; Immature Granulocytes Absolute 0.35 #; Lymphocytes # 0.9 10*3/uL (1.4-4.0); Lymphocytes % 5.8 % (21.2-54.2); Mean Corpuscular HGB Conc 31.3 GM/DL (32-36); Mean Corpuscular Volume 80.4 FL (87-102); Mean Platelet Volume 11.6 FL (9.6-12.0); Monocytes % 4.5 % (1.7-12.7); Platelet Count 191 T/CUMM (130-400); Red Blood Count 3.06 MC/CUMM (3.8-5.5); Red Cell Distribution Width 15.1 % (9.3-17.3); White Blood Count 14.7 T/CUMM (4-12)
[2019-10-29 05:18] LABS: ABG HCO3 25.3 MMOL/L (20-26); ABG Oxygen Saturation 98.2 % (95-100); ABG PCO2 47.9 MM HG (35-48); ABG PH 7.356 (7.35-7.45); ABG TCO2 25.1 MMOL/L (23-27); Allen Test Positive; Pt O2 Delivery Device Ventilator
[2019-10-29 05:28] LABS: Calcium 8.4 MG/DL (8.5-10.1); Osmolality,Calculated 307.2 MOS/KG (273-304)
[2019-10-29 05:38] LABS: Ferritin 1306.3 ng/ml (26-388)
[2019-10-29] MEDS: fentaNYL INJ 2,500 MCG in SODIUM CHLORIDE 0.9% 75 ML IV PRN ×3 (06:50→21:27)
[2019-10-29] MEDS: DEXAMETHASONE 4 MG/1 ML VIAL IV SCH (08:37)
[2019-10-29] MEDS: MIDAZOLAM 100 MG in SODIUM CHLORIDE 0.9% 80 ML IV PRN (08:37)
[2019-10-29] MEDS: MONTELUKAST 10 MG TABLET PO SCH (08:38)
[2019-10-29] MEDS: FERROUS SULFATE 325 MG TABLET PO SCH ×2 (08:38→21:28)
[2019-10-29] MEDS: FENOFIBRATE 145 MG TABLET PO SCH (08:38)
[2019-10-29] MEDS: PANTOPRAZOLE 40 MG VIAL IV SCH (08:38)
[2019-10-29] MEDS ORDERED: SODIUM POLYSTYRENE SULFATE 15 GM/60 ML BOTTLE PO ONE (09:02)
[2019-10-29] MEDS: OXYMETAZOLINE 0.05% NASAL SPRAY 15 ML BOTTLE BOTH NARES SCH (21:28)
[2019-10-30] MEDS: PIPERACILLIN/TAZOBACTAM 3,375 MG in SODIUM CHLORIDE 0.9% 100 ML IV SCH ×2 (01:40→14:22)
[2019-10-30] MEDS: HEPARIN DRIP 25,000 UNITS/500 ML PREMIX IV SCH ×2 (01:58→14:22)
[2019-10-30 04:28] LABS: Basophils % 0.1 % (0.0-0.8); Eosinophils % 0.1 % (0.00-10.9); Hematocrit 23.1 VOL% (42.0-52.0); Immature Granulocytes % 1.8 %; Immature Granulocytes Absolute 0.21 #; Lymphocytes # 0.7 10*3/uL (1.4-4.0); Lymphocytes % 6.2 % (21.2-54.2); Mean Corpuscular HGB Conc 30.3 GM/DL (32-36); Mean Corpuscular Volume 82.5 FL (87-102); Mean Platelet Volume 11.7 FL (9.6-12.0); Monocytes % 5.4 % (1.7-12.7); Neutrophils % 86.4 % (38.7-73.9); Platelet Count 161 T/CUMM (130-400); Red Cell Distribution Width 15.1 % (9.3-17.3); White Blood Count 11.4 T/CUMM (4-12)
[2019-10-30] MEDS: MIDAZOLAM 100 MG in SODIUM CHLORIDE 0.9% 80 ML IV PRN ×2 (04:34→22:26)
[2019-10-30 04:42] LABS: Calcium 8.1 MG/DL (8.5-10.1); Osmolality,Calculated 328.1 MOS/KG (273-304)
[2019-10-30 04:48] LABS: Ferritin 944.7 ng/ml (26-388)
[2019-10-30 05:00] LABS: ABG Base Excess -2.1 MMOL/L (-2.5-2.5); ABG HCO3 22.7 MMOL/L (20-26); ABG Oxygen Saturation 95.7 % (95-100); ABG PCO2 46.3 MM HG (35-48); ABG PH 7.325 (7.35-7.45); ABG TCO2 22.1 MMOL/L (23-27); Allen Test Positive; Pt O2 Delivery Device Ventilator
[2019-10-30] MEDS: fentaNYL INJ 2,500 MCG in SODIUM CHLORIDE 0.9% 75 ML IV PRN ×3 (05:29→21:26)
[2019-10-30] MEDS: INSULIN LISPRO 100 UNIT/ML SUBCUT SCH ×3 (05:30→18:16)
[2019-10-30] MEDS: FENOFIBRATE 145 MG TABLET PO SCH (08:19)
[2019-10-30] MEDS: DEXAMETHASONE 4 MG/1 ML VIAL IV SCH (08:19)
[2019-10-30] MEDS: PANTOPRAZOLE 40 MG VIAL IV SCH (08:19)
[2019-10-30] MEDS: ZINC GLUCONATE 50 MG TABLET PO SCH (08:20)
[2019-10-30] MEDS: FERROUS SULFATE 325 MG TABLET PO SCH ×2 (08:20→21:27)
[2019-10-30] MEDS: MONTELUKAST 10 MG TABLET PO SCH (08:20)
[2019-10-30] MEDS: OXYMETAZOLINE 0.05% NASAL SPRAY 15 ML BOTTLE BOTH NARES SCH ×2 (08:20→21:27)
[2019-10-30] MEDS ORDERED: SODIUM CHLORIDE 0.9% 1,000 ML IV PRN (11:26)
[2019-10-31] MEDS: INSULIN LISPRO 100 UNIT/ML SUBCUT SCH ×5 (00:16→23:30)
[2019-10-31] MEDS: PIPERACILLIN/TAZOBACTAM 3,375 MG in SODIUM CHLORIDE 0.9% 100 ML IV SCH ×2 (01:10→13:50)
[2019-10-31] MEDS: fentaNYL INJ 2,500 MCG in SODIUM CHLORIDE 0.9% 75 ML IV PRN ×4 (02:21→20:58)
[2019-10-31 04:09] LABS: ABG Base Excess -0.7 MMOL/L (-2.5-2.5); ABG HCO3 24.5 MMOL/L (20-26); ABG Oxygen Saturation 95.5 % (95-100); ABG PCO2 42.7 MM HG (35-48); ABG PH 7.376 (7.35-7.45); ABG PO2 88.9 MM HG (80-95); ABG TCO2 25.8 MMOL/L (23-27); Allen Test Positive; Pt O2 Delivery Device Ventilator
[2019-10-31 04:55] LABS: Basophils % 0.1 % (0.0-0.8); Eosinophils # 0.1 10*3/uL (0.0-0.87); Eosinophils % 0.5 % (0.00-10.9); Hematocrit 25.8 VOL% (42.0-52.0); Hemoglobin 8.1 GM/DL (14.0-18.0); Immature Granulocytes % 2.6 %; Immature Granulocytes Absolute 0.39 #; Lymphocytes % 6.3 % (21.2-54.2); Mean Corpuscular HGB Conc 31.4 GM/DL (32-36); Mean Corpuscular Volume 82.4 FL (87-102); Mean Platelet Volume 10.9 FL (9.6-12.0); Monocytes % 7.2 % (1.7-12.7); Neutrophils % 83.3 % (38.7-73.9); Platelet Count 199 T/CUMM (130-400); Red Blood Count 3.13 MC/CUMM (3.8-5.5); Red Cell Distribution Width 15.1 % (9.3-17.3); White Blood Count 15.2 T/CUMM (4-12)
[2019-10-31 05:33] LABS: Calcium 8.1 MG/DL (8.5-10.1); Osmolality,Calculated 313.1 MOS/KG (273-304)
[2019-10-31] MEDS: PANTOPRAZOLE 40 MG VIAL IV SCH (08:08)
[2019-10-31] MEDS: DEXAMETHASONE 4 MG/1 ML VIAL IV SCH (08:08)
[2019-10-31] MEDS: MONTELUKAST 10 MG TABLET PO SCH (08:09)
[2019-10-31] MEDS: FERROUS SULFATE 325 MG TABLET PO SCH ×2 (08:09→22:30)
[2019-10-31] MEDS: OXYMETAZOLINE 0.05% NASAL SPRAY 15 ML BOTTLE BOTH NARES SCH ×2 (08:09→22:30)
[2019-10-31] MEDS: FENOFIBRATE 145 MG TABLET PO SCH (08:09)
[2019-10-31] MEDS: MIDAZOLAM 100 MG in SODIUM CHLORIDE 0.9% 80 ML IV PRN ×2 (10:00→19:55)
[2019-11-01] MEDS: PIPERACILLIN/TAZOBACTAM 3,375 MG in SODIUM CHLORIDE 0.9% 100 ML IV SCH ×2 (01:44→14:05)
[2019-11-01 02:50] LABS: ABG Base Excess 2.5 MMOL/L (-2.5-2.5); ABG HCO3 26.5 MMOL/L (20-26); ABG Oxygen Saturation 91.2 % (95-100); ABG PCO2 51.2 MM HG (35-48); ABG PH 7.355 (7.35-7.45); ABG PO2 68.1 MM HG (80-95); ABG TCO2 26.7 MMOL/L (23-27); Allen Test Positive; Pt O2 Delivery Device Ventilator
[2019-11-01] MEDS: fentaNYL INJ 2,500 MCG in SODIUM CHLORIDE 0.9% 75 ML IV PRN ×6 (03:25→23:58)
[2019-11-01 04:27] LABS: Basophils % 0.1 % (0.0-0.8); Eosinophils # 0.2 10*3/uL (0.0-0.87); Hematocrit 25.9 VOL% (42.0-52.0); Immature Granulocytes % 1.9 %; Immature Granulocytes Absolute 0.39 #; Lymphocytes # 1.1 10*3/uL (1.4-4.0); Lymphocytes % 5.5 % (21.2-54.2); Mean Corpuscular HGB Conc 30.9 GM/DL (32-36); Mean Corpuscular Volume 83.5 FL (87-102); Mean Platelet Volume 10.6 FL (9.6-12.0); Monocytes % 5.7 % (1.7-12.7); Neutrophils % 85.8 % (38.7-73.9); Platelet Count 184 T/CUMM (130-400); Red Cell Distribution Width 15.3 % (9.3-17.3); White Blood Count 20.3 T/CUMM (4-12)
[2019-11-01 04:47] LABS: Eosinophils 2 % (0-10); Hypochromasia 1+; Lymphocytes 5 % (20-55); Microcytosis Slight; Platelet Estimate Adequate; Segmented Neutrophils 89 % (50-85); Total Cells Counted 100
[2019-11-01 04:51] LABS: Calcium 7.9 MG/DL (8.5-10.1); Osmolality,Calculated 302.1 MOS/KG (273-304)
[2019-11-01] MEDS: PHENYLEPHRINE INJ 160 MG in SODIUM CHLORIDE 0.9% 234 ML IV PRN (05:24)
[2019-11-01 05:28] VITALS: BP 97/46
[2019-11-01] MEDS: INSULIN LISPRO 100 UNIT/ML SUBCUT SCH ×3 (05:28→17:48)
[2019-11-01] MEDS: FENOFIBRATE 145 MG TABLET PO SCH (08:01)
[2019-11-01] MEDS: FERROUS SULFATE 325 MG TABLET PO SCH ×2 (08:01→22:18)
[2019-11-01] MEDS: MONTELUKAST 10 MG TABLET PO SCH (08:01)
[2019-11-01] MEDS: PANTOPRAZOLE 40 MG VIAL IV SCH (08:01)
[2019-11-01] MEDS: DEXAMETHASONE 4 MG/1 ML VIAL IV SCH (08:01)
[2019-11-01] MEDS: ZINC GLUCONATE 50 MG TABLET PO SCH (08:02)
[2019-11-01] MEDS: OXYMETAZOLINE 0.05% NASAL SPRAY 15 ML BOTTLE BOTH NARES SCH ×2 (08:02→20:20)
[2019-11-01] MEDS: MIDAZOLAM 100 MG in SODIUM CHLORIDE 0.9% 80 ML IV PRN ×2 (08:55→21:57)
[2019-11-01] MEDS: HEPARIN DRIP 25,000 UNITS/500 ML PREMIX IV SCH ×2 (15:21→20:18)
[2019-11-02] MEDS: PHENYLEPHRINE INJ 160 MG in SODIUM CHLORIDE 0.9% 234 ML IV PRN (01:27)
[2019-11-02] MEDS: INSULIN LISPRO 100 UNIT/ML SUBCUT SCH ×4 (01:31→18:45)
[2019-11-02] MEDS: PIPERACILLIN/TAZOBACTAM 3,375 MG in SODIUM CHLORIDE 0.9% 100 ML IV SCH ×2 (01:40→14:20)
[2019-11-02] MEDS: fentaNYL INJ 2,500 MCG in SODIUM CHLORIDE 0.9% 75 ML IV PRN ×5 (04:00→22:35)
[2019-11-02 04:02] LABS: Basophils % 0.1 % (0.0-0.8); Eosinophils # 0.5 10*3/uL (0.0-0.87); Eosinophils % 2.4 % (0.00-10.9); Hematocrit 26.2 VOL% (42.0-52.0); Immature Granulocytes Absolute 0.41 #; Lymphocytes # 1.6 10*3/uL (1.4-4.0); Mean Corpuscular HGB Conc 30.5 GM/DL (32-36); Mean Corpuscular Volume 84.2 FL (87-102); Mean Platelet Volume 11.3 FL (9.6-12.0); Monocytes % 4.3 % (1.7-12.7); Neutrophils % 83.2 % (38.7-73.9); Platelet Count 175 T/CUMM (130-400); Red Blood Count 3.11 MC/CUMM (3.8-5.5); Red Cell Distribution Width 15.4 % (9.3-17.3); White Blood Count 20.4 T/CUMM (4-12)
[2019-11-02 04:24] LABS: Calcium 7.6 MG/DL (8.5-10.1); Osmolality,Calculated 287.5 MOS/KG (273-304)
[2019-11-02 04:46] LABS: Eosinophils 3 % (0-10); Hypochromasia 1+; Lymphocytes 6 % (20-55); Microcytosis Slight; Ovalocytes Slight; Platelet Estimate Adequate; Segmented Neutrophils 86 % (50-85); Total Cells Counted 100
[2019-11-02 04:50] LABS: ABG Base Excess -1.4 MMOL/L (-2.5-2.5); ABG HCO3 23.1 MMOL/L (20-26); ABG Oxygen Saturation 86.8 % (95-100); ABG PCO2 49.5 MM HG (35-48); ABG PH 7.314 (7.35-7.45); ABG PO2 61.8 MM HG (80-95); ABG TCO2 23.3 MMOL/L (23-27); Allen Test Positive; Pt O2 Delivery Device Ventilator
[2019-11-02 04:54] LABS: Calcium 7.8 MG/DL (8.5-10.1); Osmolality,Calculated 284.7 MOS/KG (273-304)
[2019-11-02] MEDS: OXYMETAZOLINE 0.05% NASAL SPRAY 15 ML BOTTLE BOTH NARES SCH ×2 (09:40→20:50)
[2019-11-02] MEDS: FENOFIBRATE 145 MG TABLET PO SCH (09:41)
[2019-11-02] MEDS: FERROUS SULFATE 325 MG TABLET PO SCH ×2 (09:41→20:50)
[2019-11-02] MEDS: DEXAMETHASONE 4 MG/1 ML VIAL IV SCH (09:41)
[2019-11-02] MEDS: MONTELUKAST 10 MG TABLET PO SCH (09:41)
[2019-11-02] MEDS: PANTOPRAZOLE 40 MG VIAL IV SCH (09:42)
[2019-11-02] MEDS: MIDAZOLAM 100 MG in SODIUM CHLORIDE 0.9% 80 ML IV PRN (10:59)
[2019-11-02] MEDS: HEPARIN DRIP 25,000 UNITS/500 ML PREMIX IV SCH (11:50)
[2019-11-03] MEDS: INSULIN LISPRO 100 UNIT/ML SUBCUT SCH ×3 (01:14→14:10)
[2019-11-03] MEDS: PIPERACILLIN/TAZOBACTAM 3,375 MG in SODIUM CHLORIDE 0.9% 100 ML IV SCH ×2 (01:19→14:10)
[2019-11-03] MEDS: PHENYLEPHRINE INJ 160 MG in SODIUM CHLORIDE 0.9% 234 ML IV PRN (02:10)
[2019-11-03] MEDS: HEPARIN DRIP 25,000 UNITS/500 ML PREMIX IV SCH ×2 (02:14→14:10)
[2019-11-03] MEDS: fentaNYL INJ 2,500 MCG in SODIUM CHLORIDE 0.9% 75 ML IV PRN ×2 (02:23→06:39)
[2019-11-03 03:58] LABS: Basophils % 0.2 % (0.0-0.8); Eosinophils # 0.8 10*3/uL (0.0-0.87); Eosinophils % 4.4 % (0.00-10.9); Hematocrit 26.2 VOL% (42.0-52.0); Hemoglobin 8.1 GM/DL (14.0-18.0); Immature Granulocytes % 1.4 %; Immature Granulocytes Absolute 0.27 #; Lymphocytes # 2.1 10*3/uL (1.4-4.0); Lymphocytes % 11.2 % (21.2-54.2); Mean Corpuscular HGB Conc 30.9 GM/DL (32-36); Mean Platelet Volume 11.2 FL (9.6-12.0); Neutrophils % 78.8 % (38.7-73.9); Platelet Count 196 T/CUMM (130-400); Red Blood Count 3.12 MC/CUMM (3.8-5.5); Red Cell Distribution Width 16.1 % (9.3-17.3); White Blood Count 18.8 T/CUMM (4-12)
[2019-11-03 04:23] LABS: Calcium 7.8 MG/DL (8.5-10.1); Osmolality,Calculated 287.9 MOS/KG (273-304)
[2019-11-03 05:22] LABS: ABG Base Excess -4.9 MMOL/L (-2.5-2.5); ABG HCO3 21.9 MMOL/L (20-26); ABG Oxygen Saturation 90.5 % (95-100); ABG PCO2 49.4 MM HG (35-48); ABG PH 7.265 (7.35-7.45); ABG PO2 70.8 MM HG (80-95); ABG TCO2 23.4 MMOL/L (23-27); Allen Test Positive; Pt O2 Delivery Device Ventilator
[2019-11-03] MEDS: MIDAZOLAM 100 MG in SODIUM CHLORIDE 0.9% 80 ML IV PRN (06:40)
[2019-11-03] MEDS ORDERED: EPINEPHrine 1 MG/10 ML SYRINGE ONE ×3 (07:42→08:42)
[2019-11-03] MEDS ORDERED: SODIUM BICARBONATE 50 MEQ/50 ML SYRINGE IV ONE (07:42)
[2019-11-03] MEDS ORDERED: DEXTROSE 50% 25 GM/50 ML SYRINGE IV ONE (07:42)
[2019-11-03 07:56] LABS: Pt O2 Delivery Device Ventilator
[2019-11-03 07:57] LABS: ABG Base Excess -8.2 MMOL/L (-2.5-2.5); ABG HCO3 17.2 MMOL/L (20-26); ABG Oxygen Saturation 59.2 % (95-100); ABG PCO2 60.4 MM HG (35-48); ABG PO2 43.3 MM HG (80-95); ABG TCO2 20.3 MMOL/L (23-27)
[2019-11-03 08:04] LABS: ABG PH 7.149 (7.35-7.45)
[2019-11-03] MEDS ORDERED: SODIUM BICARBONATE 50 MEQ/50 ML VIAL IV ONE ×5 (08:11→09:31)
[2019-11-03] MEDS ORDERED: ROCURONIUM 500 MG in SODIUM CHLORIDE 0.9% 500 ML IV PRN (08:17)
[2019-11-03] MEDS ORDERED: ROCURONIUM 100 MG/10 ML VIAL IV ONE (08:17)
[2019-11-03] MEDS ORDERED: NOREPINEPHRINE 4 MG/4 ML VIAL IV ONE (08:30)
[2019-11-03] MEDS ORDERED: NOREPINEPHRINE 8 MG in SODIUM CHLORIDE 0.9% 242 ML IV PRN (08:30)
[2019-11-03] MEDS ORDERED: CALCIUM CHLORIDE 1,000 MG/10 ML SYRINGE IV ONE ×2 (08:40→08:41)
[2019-11-03] MEDS ORDERED: ATROPINE 1 MG/10 ML SYRINGE IV ONE (08:40)
[2019-11-03] MEDS ORDERED: ATROPINE 1 MG/10 ML SYRINGE ONE (08:42)
[2019-11-03] MEDS ORDERED: SODIUM CHLORIDE 0.9% 1,000 ML IV ONE (08:42)
[2019-11-03] MEDS: ZINC GLUCONATE 50 MG TABLET PO SCH (14:10)
[2019-11-03] MEDS: FENOFIBRATE 145 MG TABLET PO SCH (14:10)
[2019-11-03] MEDS: DEXAMETHASONE 4 MG/1 ML VIAL IV SCH (14:11)
[2019-11-03] MEDS: FERROUS SULFATE 325 MG TABLET PO SCH (14:11)
[2019-11-03] MEDS: OXYMETAZOLINE 0.05% NASAL SPRAY 15 ML BOTTLE BOTH NARES SCH (14:11)
[2019-11-03] MEDS: PANTOPRAZOLE 40 MG VIAL IV SCH (14:11)
[2019-11-03] MEDS: MONTELUKAST 10 MG TABLET PO SCH (14:11)
== END 2019-11-03 10:00 | disposition expired | DRG 870 ==
LOC: N.ED 17:16 → N.EDINP 18:56 → SUATTDRO 18:56 → N.CC 23:51
PROVIDERS: ADMIT Family Medicine; ATTEND Family Medicine